=== PATIENT | male | born 1980 | race Caucasian/White ===

== ENCOUNTER 2017-06-11 08:41 | Day surgery (SDC) | payer BC ==
[~2017-06-11 08:41] MED LIST: Buffered Lidocaine 0.9% SYRIN* 5 ML/SYR SYRINGE INTRADERM ONE; Famotidine IV* 10 MG/ML 2 ML (20 mg) IV ONE; Metoclopramide TAB* 10 MG PO ONE
[2017-06-11] MEDS ORDERED: Famotidine IV* 10 MG/ML 2 ML (20 mg) ONE (08:53)
[2017-06-11] MEDS ORDERED: Buffered Lidocaine 0.9% SYRIN* 5 ML/SYR SYRINGE ONE (08:53)
[2017-06-11] MEDS ORDERED: Metoclopramide TAB* 10 MG ONE (08:53)
[2017-06-11] MEDS ORDERED: Propofol* 10 MG/ML 20 ML BTL IV PUSH ONE (09:08)
[2017-06-11] MEDS ORDERED: Dexamethasone IV* 4 MG/ML 1 ML (4 MG) ONE (09:08)
[2017-06-11] MEDS ORDERED: Lidocaine 2% PF * 5 ML VIAL ONE (09:08)
[2017-06-11] MEDS ORDERED: Midazolam* 1 MG/ML 10 ML VIAL (10 MG) ONE (09:08)
[2017-06-11] MEDS ORDERED: Ondansetron INJ* 2 MG/ML VIAL ONE ×2 (09:08→11:27)
[2017-06-11] MEDS ORDERED: fentaNYL* 50 MCG/ML 2 ML VIAL (100 MCG VIAL) ONE ×3 (09:08→10:19)
[2017-06-11] MEDS ORDERED: Ondansetron INJ* 2 MG/ML VIAL IV PRN (09:22)
[2017-06-11] MEDS ORDERED: Naloxone* 0.4 MG/ML 1 ML VIAL IV PRN (09:22)
[2017-06-11] MEDS ORDERED: Levalbuterol 0.63MG/3ML NEB* UNIT OF USE INH PRN (09:22)
[2017-06-11] MEDS: fentaNYL* 50 MCG/ML 2 ML VIAL (100 MCG VIAL) IV PRN ×2 (10:28→11:10)
[2017-06-11] MEDS ORDERED: Levalbuterol 0.63MG/3ML NEB* UNIT OF USE INH ONE (10:39)
[2017-06-11] MEDS ORDERED: HYDROcodone/ACET. 7.5/325 LIQ* 15 ML UDC ONE (11:22)
[2017-06-11] MEDS ORDERED: DiMENhydriNATE IV* 50 MG/ML VIAL ONE (12:58)
[2017-06-11] MEDS ORDERED: Scopolamine 1.5 mg* PATCH ONE (13:17)
[2017-06-11 13:49] VITALS: BP 128/73
--- NOTE | 2017-06-11 22:44 | OP ---
DATE OF OPERATION: 06/11/17 - [facility] DATE OF : 80 SURGEON: Elton Rodriguez M.D. ANESTHESIOLOGIST: Avinash Michael MD ANESTHESIA: General PRE-OP DIAGNOSIS: Hypertrophied tonsils. POST-OP DIAGNOSIS: Hypertrophied tonsils. OPERATIVE PROCEDURE: Tonsillectomy. BRIEF HISTORY: This is a 37-year-old presenting with enlarged tonsil with soreness and otalgia, not resolving with medical management and elected for surgical biopsy and tonsillectomy. DESCRIPTION OF PROCEDURE: The patient was taken to the operating room, general anesthetic was given and the patient was intubated. Tongue, mandible, and soft palate were retracted. Coblator was used to remove the tonsils. Tonsils were then sent for biopsy specimens as fresh specimens. Once hemostasis was obtained , the patient was awakened and sent to the recovery room in stable condition. Instrument and sponge count correct. Blood loss minimal. [id number]/CPS #: [id number] MTDD
== END 2017-06-11 13:49 | disposition home or self-care (01) ==
LOC: OR 08:41
PROVIDERS: ATTEND Otolaryngology
DX: J35.1 Hypertrophy of tonsils (principal); J45.909 Unspecified asthma, uncomplicated
CPT/HCPCS: 88304; A9270-GY; J1100; J1240; J2250; J2405; J2704; J3010; J7614

== ENCOUNTER 2017-10-28 07:55 | Emergency (ER) | payer BC ==
[2017-10-28 08:02] VITALS: BP 147/96
--- NOTE | 2017-11-25 09:55 | UC ---
Keyshawn Guido Gabriel, scribed for Jane Biswas MD on 10/28/17 at 0917 . General HPI - HPI Summary HPI Summary: This patient is a 37 year old M presenting to [facility] with a chief complaint of a general illness that began with right eye redness yesterday. Pt states that it was swollen and has had some yellowish/discharge that began yesterday and has persistent until today. He did use eye drops to relieve redness with some relief. Pt also has had a left sided ear ache that began 2 days and a sore throat that began this morning. The patient rates the pain 2/10 in severity. Patient denies cough. Pt does not wear contact lenses. Pt had a tonsillectomy 4 months ago. - History of Current Complaint Chief Complaint: UCGeneralIllness Stated Complaint: SORE THROAT EYE ISSUE Time Seen by Provider: 10/28/17 09:08 Hx Obtained From: Patient Onset/Duration: Lasting Days, Still Present Timing: Constant Onset Severity: Mild Current Severity: Mild Pain Intensity: 2 Associated Signs & Symptoms: Positive: Other - eye redness, ear ache, and sore throat. - Allergy/Home Medications Allergies/Adverse Reactions: Allergies Allergy/AdvReac Type Severity Reaction Status Date / Time No Known Allergies Allergy Verified 10/28/17 08:03 PMH/Surg Hx/FS Hx/Imm Hx Previously Healthy: Yes Respiratory History: Asthma Other History Of: Negative For: Hepatitis B, Hepatitis C - Surgical History Surgical History: Yes Surgery Procedure, Year, and Place: umbilical hernia repair 2014 [facility] [place] - Family History Known Family History: Negative: Blood Disorder - Social History Occupation: Employed Full-time Alcohol Use: Rare Substance Use Type: None Smoking Status (MU): Never Smoked Tobacco Review of Systems Constitutional: Other - see hpi Eyes: Drainage, Eye Redness ENT: Sore Throat, Ear Ache Respiratory: Cough Cardiovascular: Negative Gastrointestinal: Negative Genitourinary: Negative Motor: Negative All Other Systems Reviewed And Are Negative: Yes Physical Exam - Summary Physical Exam Summary: Appearance: Well-Nourished Eye Exam: ENT Exam: TMs are normal ,there are no tonsils due to tonsillectomy, no sores, uvula is midline, posterior pharynx is erythematous Respiratory Exam: Normal, no dyspnea, no tachypnea, normal respiratory rate Cardiovascular Exam: Normal Cardiovascular: Heart rate regular, good general skin color, good capillary refill Abdominal Exam: Normal Abdomen Description: Nontender, No Organomegaly, Soft Bowel Sounds: Present Musculoskeletal Exam: Normal Musculoskeletal: Strength Intact Neurological Exam: Normal: nonfocal, grossly intact Psychological Exam: Normal: conversing easily and appropriately Skin Exam: Normal: no visible or reported rash Triage Information Reviewed: Yes Appearance: Well-Nourished - sitting up, conversing in full sentances Vital Signs: Initial Vital Signs Temp 97.8 F 10/28/17 07:57 Pulse 81 10/28/17 07:57 Resp 17 10/28/17 07:57 BP 147/96 10/28/17 07:57 Pulse Ox 100 10/28/17 07:57 Vital Signs Reviewed: Yes Eye Exam: Other - + red conjunct bilat, some watery drainage ENT: Positive: Pharyngeal erythema - mild post redness, TM dull Neck exam: Normal Neck: Positive: Supple Respiratory Exam: Other - + rhonchorus cough. + mild wheeze Respiratory: Positive: No respiratory distress, No accessory muscle use Cardiovascular Exam: Normal Cardiovascular: Positive: RRR, No Murmur, Pulses Normal, Brisk Capillary Refill Abdominal Exam: Normal Abdomen Description: Positive: Nontender Musculoskeletal Exam: Normal Musculoskeletal: Positive: Strength Intact Neurological Exam: Normal Psychological Exam: Normal Skin Exam: Normal Course/Dx - Course Course Of Treatment: Reviewed coa / tx plan with Mr. Landeros. Questions as posed answered to the best of my ability. - Differential Dx - Multi-Symptom Provider Diagnoses: URI. Conjunctivitis Discharge - Sign-Out/Discharge Documenting (check all that apply): Patient Departure - Discharge Plan Condition: Stable Disposition: HOME Prescriptions: Azithromyxin RAFFAELE (NF) [Z-Raffaele (Zithromax) 250 mg tabs #6] 2 tab PO .TODAY, THEN 1 DAILY #6 tab Ciprofloxacin 0.3% OPTH.SURYA* [Cipro 0.3% Opth*] 2 drop RIGHT EYE Q6H #1 btl Patient Education Materials: Upper Respiratory Infection (ED), Conjunctivitis ( ED) Forms: *Work Release Referrals: Karla Fonseca, [employer] [Primary Care Provider] - Additional Instructions: Your blood pressure was elevated during today's visit, 147/96. Please check your blood pressure once you have been off decongestants and follow up with your primary care provider in 1-2 weeks. Please see your PCP as needed. - Billing Disposition and Condition Condition: STABLE Disposition: Home The documentation as recorded by the Keyshawn najera Gabriel accurately reflects the service I personally performed and the decisions made by me, Jane Biswas MD.
== END 2017-10-28 09:35 | disposition home or self-care (01) ==
LOC: UCEAST 07:55
DX: J06.9 Acute upper respiratory infection, unspecified (principal); H10.31 Unspecified acute conjunctivitis, right eye; H92.02 Otalgia, left ear; J45.909 Unspecified asthma, uncomplicated
CPT/HCPCS: 87651; 99212; G0463

== ENCOUNTER 2019-02-28 09:01 | Emergency (ER) | payer BC, OTHER ==
--- OUTSIDE RECORDS SUMMARY | 2019-02-28 09:07 | XMS REPORT | Continuity of Care Document ---
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 Medicine Problems Description No Information Available Social History Type Date Description Comments Sex Unknown ETOH Use Rare Tobacco Use Start: Unknown Nonsmoker Smoking Status Reviewed: 11/05/17 Nonsmoker Allergies, Adverse Reactions, Alerts Active Allergies Reaction Severity Comments Date NKDA 11/05/2017 Cats 11/05/2017 Dogs 11/05/2017 Dust 11/05/2017 Nuts 11/05/2017 Medications Active Medications SIG Qnty Indications Ordering Provider Date Hyoscyamine Sulfate take one by mouth 30tabs K52.3 Jennifer Mercado 2019 every 4-6 hours as TAMICA Batista 0.125mg Tablets needed for abdominal cramping Ventolin HFA take 2 puffs Unknown inhaled every 4 108(90Base) mcg/Act hours as needed Aerosol Symbicort inhale two puffs Unknown by mouth twice a 160-4.5mcg/Act day Aerosol Immunizations CPT Code Status Date Vaccine Lot # [id number] Given 11/05/2017 Pneumococcal Immunization [id number] Vital Signs Date Vital Result Comment 2019 5:50pm BP Systolic 118 mmHg BP Diastolic 80 mmHg Heart Rate 64 /min Body Temperature 97.5 F Respiratory Rate 16 /min Height 65.5 inches 5'5.50" Weight 180.00 lb BMI (Body Mass Index) 29.5 kg/m2 07/13/2018 11:48am BP Systolic 130 mmHg BP Diastolic 98 mmHg Heart Rate 82 /min Body Temperature 97.9 F Respiratory Rate 97 /min Height 65.5 inches 5'5.50" Weight 193.00 lb BMI (Body Mass Index) 31.6 kg/m2 Results Description No Information Available Procedures Description No Information Available Medical Devices Description No Information Available Encounters Description No Information Available Assessments Date Code Description Provider 2019 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 There are several potential causes of your symptoms, but you will need a full workup.In addition, it may help to have your well water tested , as sometimes bacterial overgrowth in a well can cause symptoms like yours.AllComments:1. Patient has been queried about patient's goals/ preferences and functional/lifestyle goals at relevant visits. If relevant, describe: Has been discussed, noted above2. Treatment goals as explainedto the patient: see above3. Are there barriers to meeting treatment goals? Yes If Yes, please describe: Barriers include possible insurance limits, disease process, and difficulty with lifestyle changes4. Self-Management goals as described to the patient: Yes, see above As always, we strongly encourage a healthy diet and making physical activity a part of your every day life. If you have questions about how or where to start, please contact the office. Functional Status Description No Information Available Mental Status Description No Information Available Referrals Description No Information Available
--- OUTSIDE RECORDS SUMMARY | 2019-02-28 09:07 | XMS REPORT | Continuity of Care Document ---
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 Medicine Problems Active Problems Provider Date Peroneal tendinitis, left leg Catracho Bardales MD Onset: 02/05/2019 Joint derangement Catracho Bardales MD Onset: 02/05/2019 Social History Type Date Description Comments Sex Unknown ETOH Use Occasionally consumes alcohol Tobacco Use Start: Unknown Patient has never smoked Smoking Status Reviewed: 02/05/19 Patient has never smoked Exercise Type/Frequency Exercises regularly Allergies, Adverse Reactions, Alerts Description No Known Drug Allergies Medications Active Medications SIG Qnty Indications Ordering Provider Date Symbicort Unknown Medications Administered in Office Medication SIG Qnty Indications Ordering Provider Date Celestone 3 mg and 3mg Martinez Bermeo M.D. 03/18/2018 Injection Celestone 3 mg and 3mg Martinez Bermeo M.D. 03/18/2018 Injection Depomedrol 20MG Martinez Bermeo M.D. 11/17/2013 Injection Immunizations Description No Information Available Vital Signs Date Vital Result Comment 02/05/2019 8:49am Height 66.25 inches 5'6.25" Weight 184.00 lb Heart Rate 96 /min BP Systolic 146 mmHg BP Diastolic 84 mmHg BMI (Body Mass Index) 29.5 kg/m2 03/18/2018 11:55am Height 66 inches 5'6" Weight 170.00 lb BP Systolic 122 mmHg BP Diastolic 76 mmHg BMI (Body Mass Index) 27.4 kg/m2 Results Description No Information Available Procedures Description No Information Available Medical Devices Description No Information Available Encounters Description No Information Available Assessments Date Code Description Provider 02/05/2019 M25.372 Other instability, left ankle Catracho Bardales MD 02/05/2019 M76.72 Peroneal tendinitis, left leg Catracho Bardales MD Plan of Treatment 02/05/2019 - Catracho Bardales, MDM25.372 Other instability, left ankleNew Therapy: Physical TherapyFollow up:Follow Up: 6 [id number] Peroneal tendinitis, left leg Functional Status Description No Information Available Mental Status Description No Information Available Referrals Description No Information Available
[2019-02-28 09:12] VITALS: BP 137/86
--- NOTE | 2019-02-28 10:32 | UC ---
Minor Trauma HPI - HPI Summary HPI Summary: 39 yo WM p/w right chest wall pain after colliding with another player while playing soccer 1 week ago and now hurts to laugh, denies SOB or difficulty breathing - History of Current Complaint Chief Complaint: UCTrauma Stated Complaint: RIB INJURY Time Seen by Provider: 02/28/19 09:17 Hx Obtained From: Patient Onset/Duration: Sudden Onset Severity Initially: Moderate Severity Currently: Moderate Pain Intensity: 5 Mechanism Of Injury: Direct Blow - Allergies/Home Medications Allergies/Adverse Reactions: Allergies Allergy/AdvReac Type Severity Reaction Status Date / Time NUTS Allergy Swelling Uncoded 02/28/19 09:12 Home Medications: Home Medications Budesonide/Formote 80/4.5(NF) [Symbicort 80/4.5 (NF)] 1 puff INH BID 02/28/19 [ History Confirmed 02/28/19] PMH/Surg Hx/FS Hx/Imm Hx Previously Healthy: Yes Other History Of: Negative For: Hepatitis B, Hepatitis C - Surgical History Surgical History: Yes Surgery Procedure, Year, and Place: umbilical hernia repair 2013; [facility] tonsils out; [facility](TESTICLE TWISTED) - Family History Known Family History: Negative: Blood Disorder Family History: NC - Social History Alcohol Use: Occasionally Substance Use Type: None Smoking Status (MU): Never Smoked Tobacco Review of Systems All Other Systems Reviewed And Are Negative: Yes Constitutional: Positive: Negative Skin: Positive: Negative Eyes: Positive: Negative ENT: Positive: Negative Respiratory: Positive: Negative. Negative: Shortness Of Breath Cardiovascular: Positive: Negative Gastrointestinal: Positive: Negative Motor: Positive: Negative Neurovascular: Positive: Negative Musculoskeletal: Positive: Other: - right chestwall pain Physical Exam - Summary Physical Exam Summary: Vital Signs Reviewed: Yes Eye Exam: Normal Eyes: Positive: Conjunctiva Clear ENT: Positive: Normal ENT inspection Neck: Positive: Supple Respiratory Exam: Normal Respiratory: Positive: Lungs clear, Normal breath sounds and BS equal Cardiovascular Exam: Normal Cardiovascular: Positive: RRR Abdomen: NT/ND Musculoskeletal Exam: mild TTP over right mid to right lateral chest wall, NO bony tenderness Neurological Exam: Normal Psychological Exam: Normal Skin Exam: Normal Triage Information Reviewed: Yes Vital Signs: Initial Vital Signs Temp 36.7 C 02/28/19 09:09 Pulse 68 02/28/19 09:09 Resp 18 02/28/19 09:09 BP 137/86 02/28/19 09:09 Pulse Ox 100 02/28/19 09:09 Minor Trauma Course/Dx - Course Course Of Treatment: Rib XR negative for fx - Differential Dx/Diagnosis Provider Diagnosis: Chest wall injury Discharge ED - Sign-Out/Discharge Documenting (check all that apply): Patient Departure All imaging exams completed and their final reports reviewed: Yes - Discharge Plan Condition: Stable Disposition: HOME Patient Education Materials: Rib Contusion (ED) Referrals: Florencio Mantilla MD [Primary Care Provider] - - Billing Disposition and Condition Condition: STABLE Disposition: Home
== END 2019-02-28 10:28 | disposition home or self-care (01) ==
LOC: UCEAST 09:01
DX: S29.9XXA Unspecified injury of thorax, initial encounter (principal); Z91.018 Allergy to other foods; W03.XXXA Other fall on same level due to collision with another person, initial encounter; Y93.66 Activity, soccer; Y92.9 Unspecified place or not applicable
CPT/HCPCS: 99211; G0463